=== PATIENT | male | born 1950 | race African-American/Black ===

== ENCOUNTER 2017-12-15 06:52 | Outpatient (CLI) | payer BC, MEDICARE ==
--- NOTE | 2017-12-15 09:20 | ULT ---
RIGHT UPPER QUADRANT SONOGRAM: HISTORY: Abnormal liver function tests. FINDINGS: Echogenic stones are apparent within the dependent portion of the gallbladder lumen. No gallbladder wall thickening or pericholecystic fluid. The common duct is 0.6 cm. The liver is hyperechoic and c ontains multiple lobular cysts. No solid masses or intrahepatic biliary dilatation. No free fluid. IMPRESSION: 1. Cholelithiasis. 2. No evidence of acute biliary obstruction. 3. Hepatosteatosis. 4. Incidental note of hepatic and right renal cysts. POS: ZARIAH
== END 2017-12-15 06:53 | disposition home or self-care (01) ==
LOC: SCSULT 06:52
PROVIDERS: ATTEND Family Medicine
DX: R93.2 Abnormal findings on diagnostic imaging of liver and biliary tract (principal); K80.20 Calculus of gallbladder without cholecystitis without obstruction; K76.0 Fatty (change of) liver, not elsewhere classified
CPT/HCPCS: 76705

== ENCOUNTER 2018-08-30 15:25 | Outpatient (CLI) | payer BC, MEDICARE ==
--- NOTE | 2018-08-30 17:32 | RAD ---
THREE VIEWS LUMBAR SPINE: 08/30/18 HISTORY: Right lower back pain, x1 week. Symptoms are worsening. FINDINGS: Five lumbar type vertebral bodies. Vertebral body height is maintained. No fracture. Disc space heigh ts are preserved. Minimal osteophyte formation. In the lateral position, there is approximately 4.3 mm of anterolisthesis of L4 upon L5. No obvious associated spondylolysis. IMPRESSION: Grade I anterolisthesis of L4 upon L5 without associated spondylolysis. POS: OFF
== END 2018-08-30 15:26 | disposition home or self-care (01) ==
LOC: SCSRAD 15:25
PROVIDERS: ATTEND Family Medicine
DX: M54.16 Radiculopathy, lumbar region (principal); M43.06 Spondylolysis, lumbar region; M43.16 Spondylolisthesis, lumbar region
CPT/HCPCS: 72100